=== PATIENT | male | born 1995 | race Caucasian/White ===

== ENCOUNTER 2019-08-19 15:39 | Emergency (ER) | payer SELFPAY ==
[~2019-08-19] VITALS: Ht 180.3 cm; Wt 81.6 kg
[2019-08-19 15:39] VITALS: BP 152/81
--- NOTE | 2019-08-19 15:39 | NUR ---
Patient BIB [facility] for pre-booking medical screening exam, transferred to chair Zaman RN evaluating patient.
--- NOTE | 2019-08-19 15:40 | NUR ---
PT CAME IN TO ER FOR PREBOOK. PT ALERT AND ABLE TO ANSWER QUESTIONS APPROPRIATELY. PT IS WEARING GLOVES [place] HAVING SORES ON HANDS BILATERAL. ERMD ASSESSED PT HANDS. ERMD MADE AWARE OF STATUS. SAFETY MEASURES IN PLACE. [facility] AT CHAIR SIDE.
--- NOTE | 2019-08-19 15:48 | NUR ---
Dr. Anton is evaluating the patient.
[2019-08-19 16:01] VITALS: BP 152/81
--- NOTE | 2019-08-19 16:01 | NUR ---
Patient discharged with v/s stable. Written and verbal after care instructions given and explained. Patient verbalized understanding. Police with in custody. All questions addressed prior to discharge. Advised to follow up with PMD.
== END 2019-08-19 16:01 ==
LOC: MED 15:39
DX: Z00.00 Encounter for general adult medical examination without abnormal findings (principal)
CPT/HCPCS: 99283

== ENCOUNTER 2019-08-26 00:36 | Emergency (ER) | payer SELFPAY ==
[~2019-08-26] VITALS: Ht 182.9 cm; Wt 77.1 kg
[2019-08-26 00:40] VITALS: BP 131/42
[2019-08-26] MEDS ORDERED: LORazepam 2 MG/ML VIAL IM ONE (00:40)
--- NOTE | 2019-08-26 00:40 | NUR ---
24 y/o male BIB [facility] for prebook. Pt wheel chair assisted from police vehicle to bed 10 d/t pt aggressivness and refusal to walk. Officer states pt hit head in back of police vehilce while in rout to alf. Pt need clearance for prebook. He is alert to name, palce, time, and event. His mood is liable alternating between agressive and angry to calm. He also admits to meth use today. In hand cuff for staff safety. VSS. Dr Cardoza at bedside. Continue to monitor.
[2019-08-26 01:15] VITALS: BP 115/87
--- NOTE | 2019-08-26 01:15 | NUR ---
Patient discharged with v/s stable. No longer c/o anxiety. He is calm and cooperative. Written and verbal after care instructions given and explained. Patient verbalized understanding. Ambulatory with steady gait but wheel chair assisted out of facility to PD's vehicle for conveniance. All questions addressed prior to discharge. Advised to follow up with PMD. Pt medically cleared and released in cutody in stable condition to [facility]. Original pre-book form given to [facility] [place] officer.
== END 2019-08-26 01:15 ==
LOC: MED 00:36
DX: R07.2 Precordial pain (principal); R51 Headache; R45.1 Restlessness and agitation; I10 Essential (primary) hypertension; Z02.89 Encounter for other administrative examinations; W22.8XXA Striking against or struck by other objects, initial encounter; Y93.89 Activity, other specified; Y92.89 Other specified places as the place of occurrence of the external cause; Y99.8 Other external cause status
CPT/HCPCS: 96372; 99283; J2060